=== PATIENT | male | born 1990 | race Caucasian/White ===

== ENCOUNTER 2024-09-24 18:38 | Emergency (ER) | payer OTHER, SELFPAY ==
--- NOTE | ~2024-09-24 | XR_ITS ---
EXAM: XR forearm LT 2V, XR wrist LT min 3V DATE: 09/24/2024 21:16 HISTORY: fall from ladder, pain . COMPARISON: None available. FINDINGS: Normal mineralization. No fracture or dislocation. No lytic or blastic lesion. Joint space s are maintained. No erosion or periosteal change. Soft tissues within normal limits. IMPRESSION: No acute osseous finding in the left wrist or forearm. Reviewed, dictated and finalized at location K. IMPRESSION: No acute osseous finding in the left wrist or forearm.
--- NOTE | ~2024-09-24 | CT_ITS ---
EXAMINATION: CT cervical spine wo con DATE: 09/24/2024 19:08 INDICATION: fall TECHNIQUE: Computed tomography (CT) of the cervical spine was performed without intravenous contrast. Automated exposure control and iterative reconstruction technique were employed. The dose-length pro duct was 311.76 mGy-cm. COMPARISON: None. FINDINGS: Vertebral Body Alignment: Intact. Craniocervical and atlantoaxial alignment: No significant degenerative change. Alignment intact. Osseous structures/fracture: No evidence of a lytic or blastic process in the visualized spine. No e vidence of acute fracture. Cervical soft tissues: The paraspinal soft tissues planes are maintained. Degenerative changes: No significant degenerative changes. IMPRESSION: No acute fracture or traumatic malalignment in the cervical spine. Reviewed, dictated and finalized at location K.
--- NOTE | ~2024-09-24 | XR_ITS ---
EXAM: XR femur LT min 2V, XR knee LT min 4V DATE: 09/24/2024 21:16 HISTORY: fall from ladder, pain . COMPARISON: None available. FINDINGS: Normal mineralization. No fracture or dislocation. No lytic or blastic lesion. Joint space s are maintained. No erosion or periosteal change. Soft tissues within normal limits. IMPRESSION: No acute osseous finding in the left femur or left knee. Reviewed, dictated and finalized at location K. IMPRESSION: No acute osseous finding in the left femur or left knee.
--- NOTE | ~2024-09-24 | CT_ITS ---
EXAMINATION: CT chest abdomen pelvis w con DATE: 09/24/2024 19:10 INDICATION: fall from height . TECHNIQUE: Computed tomography (CT) of the chest, abdomen, and pelvis was performed with 100 mL Omnip aque-350 intravenous contrast. Automated exposure control and iterative reconstruction technique were employed. The dose-length product was 484.26 mGy-cm. COMPARISON: None FINDINGS: CHEST: No thoracic aortic injury. No mediastinal hematoma. No pericardial effusion. No acute lung injury. No pleural effusion or pneumothorax. ABDOMEN/PELVIS: No solid organ injury. Mildly enlarged liver and spleen. No evidence of bowel or mesenteric injury. No free fluid or free air. No retroperitoneal hematoma. Pelvic contents are atraumatic. MUSCULOSKELETAL: No acute fracture. No fracture or traumatic malalignment of the thoracic or lumbar spine. Partial block fusion at T10-11 . No severe central canal or neural foraminal narrowing. IMPRESSION: No acute traumatic process detected in the chest, abdomen, or pelvis. Mild hepatosplenomegaly. Reviewed, dictated and finalized at location K.
--- NOTE | ~2024-09-24 | CT_ITS ---
EXAMINATION: CT brain wo con DATE: 09/24/2024 19:08 INDICATION: fall . TECHNIQUE: Computed tomography (CT) of the head was performed without intravenous contrast. The mA wa s adjusted according to patient size. Iterative reconstruction technique was employed. The dose-lengt h product was 605.33 mGy-cm. COMPARISON: 08/31/2006. FINDINGS: No acute intracranial hemorrhage or extra-axial fluid collection. No hydrocephalus, mass, or herniation. No acute ischemic infarct. Unremarkable dural venous sinus attenuation. No acute osseous abnormality. Right maxillary mucosal thickening and aerated secretions, the remaining aerated spaces are clear. IMPRESSION: No acute intracranial process. Right maxillary findings may represent acute sinusitis and/or mild mucosal hemorrhage given the histo ry of trauma. Reviewed, dictated and finalized at location K. IMPRESSION: No acute intracranial process. Right maxillary findings may represent acute sinusitis and/or mild mucosal hemo rrhage given the history of trauma.
[2024-09-24 18:41] VITALS: BP 134/83; PULSE 128; RESP 20; TEMP 36.9; O2SAT 99
--- OUTSIDE RECORDS SUMMARY | 2024-09-24 18:41 | XMS_ITS | Clinical Summary ---
Author Organization [facility] Address [address] [place] [address] Care Team Providers Care Associate Counsel Name Role Phone Unavailable Primary Care Provider Unavailabl e Source Comments [facility],non-owned Affiliates and Associated Physician Practices is amultiple site organization consisting of ambulatory clinics and hospital sitesin [place], [place] and [place]. This disclosure is being madepursuant to the Care Everywhere program and may not contain all information available regarding this patient. Last updated 17.[employer] Allergies No known active allergies Medications * Be aware that medications may not be up to date on this document. Alwaysverify current medications with the patient. ibuprofen (MOTRIN) 600 MG tablet Take 600 mg by mouth every 6 hours as needed. Active Active Problems Problem Noted Date Diagnosed Date Flu 11/10/2009 Family History Medical History Relation Name Comments CAD (Coronary Artery Disease) Maternal Grandfather Relation Name Status Comments Maternal Grandfather Social History Tobacco Use Types Packs/Day Years Used Date Smoking Tobacco: Passive Smo ke Exposure - Never Smoker Comments:not currently smoki ng. 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 Gender Identity Not on file Sexual Orientation Not on file Last Filed Vital Signs Vital Sign Reading Time Taken Comments Blood Pressure 120/68 11/10/2009 9:14 AM CDT Pulse 98 11/10/2009 9:14 AM CDT Temperature 39.2 C (102.5 F) 11/10/2009 9:14 AM CDT Respiratory Rate - - Oxygen Saturation 98% 11/10/2009 9:14 AM CDT Inhaled Oxygen Concentration - - Weight 74.6 kg (164 lb 6.4 oz) 11/10/2009 9:14 A M CDT Height 176.5 cm (5' 9.5) 11/10/2009 9:14 AM CDT Body Mass Index 23.93 11/10/2009 9:14 AM CDT Plan of Treatment Health Maintenance Due Date Last Done Comments HIV SCREENING 2004 HEPATITIS C SCREENING 08/13/2007 DTAP/TDAP/TD VACCINES (1 - Tdap) 2008 HEPATITIS B VACCINE (1 of 3 - 19+ 3-dose series) 2008 COVID-19 VACCINE (1 - 2023-2 5 season) 2023 DEPRESSION SCREENING 03/21/2024 INFLUENZA VACCINE (Season Ended) 2024 ZOSTER VACCINE (1 of 2) 08/18/2039 HIB VACCINE Aged Out No longer eligi ble based on patient's age to complete this topic HPV VACCINE Aged Out No longer eligi ble based on patient's age to complete this topic MENINGOCOCCAL (Group B) VACC INE SHARED DECISION-MAKING Aged Out No longer eligibl e based on patient's age to complete this topic MENINGOCOCCAL GROUPS A/C/Y/W VACCINE Aged Out No longer eligible b ased on patient's age to complete this topic PNEUMOCOCCAL VACCINE Aged Out No long er eligible based on patient's age to complete this topic
--- NOTE | 2024-09-24 18:46 | ED.FALL ---
HPI - Fall General Chief Complaint: Fall <Luci Rosado PA-C - Last Filed: 09/25/24 12:57> Stated Complaint: fell off 10ft ladder <ÁNGELA Rooney Last Filed: 09/25/24 12:57> Time Seen by Provider: 09/24/24 18:46 <Luci Rosado PA-C - Last Filed: 09/25/24 12:57> Focused HPI: This is a 34-year-old male that presents to the emergency department after a fall this afternoon. Reports he fell about 10 ft off of a ladder. Landed on his left side. He does not believe he hit his head. He did not lose consciousness. Reports pain throughout his left side. GENERAL: Well-appearing, well-nourished, and in no acute distress. HEAD: Normocephalic, atraumatic. CHEST: Clear to auscultation. ?No respiratory distress. HEART: Tachycardic, regular rhythm.? NEURO: ?Alert and oriented x3. Patient screened in triage and initial orders placed.? ?Additional care and disposition to be based upon?diagnostic testing and treatment. <Luci Rosado PA-C - Last Filed: 09/25/24 12:57> Focused HPI: This is a 34-year-old male that presents to the emergency department after a fall this afternoon. Reports he fell about 10 ft off of a ladder. Landed on his left side. He does not believe he hit his head. He did not lose consciousness. Reports pain throughout his left side. GENERAL: Well-appearing, well-nourished, and in no acute distress. HEAD: Normocephalic, atraumatic. CHEST: Clear to auscultation. ?No respiratory distress. HEART: Tachycardic, regular rhythm.? NEURO: ?Alert and oriented x3. Patient screened in triage and initial orders placed.? ?Additional care and disposition to be based upon?diagnostic testing and treatment. <ÁNGELA Hager Last Filed: 09/24/24 21:57> Source: patient <ÁNGELA Hager Last Filed: 09/24/24 21:57> Mode of arrival: ambulatory <ÁNGELA Hager Last Filed: 09/24/24 21:57> Limitations: no limitations <ÁNGELA Hager Last Filed: 09/24/24 21:57> History of Present Illness HPI Narrative: Agree with above HPI. Upon my evaluation, patient complains of the most pain to his left hip, left wrist, left knee. Denies dizziness, lightheadedness, vision changes, nausea, vomiting, shortness of breath. <ÁNGELA Hager Last Filed: 09/24/24 21:57> Related Data Allergies/Adverse Reactions: Allergies Allergy/AdvReac Type Severity Reaction Status Date / Time No Known Allergies Allergy Mild Verified 09/24/24 18:45 <ÁNGELA Rooney Last Filed: 09/25/24 12:57> Review of Systems Review of Systems: All systems reviewed & are unremarkable except as noted in HPI. <ÁNGELA Hager Last Filed: 09/24/24 21:57> All systems reviewed & are unremarkable except as noted in HPI and below <ÁNGELA Hager Last Filed: 09/24/24 21:57> Exam Narrative: GENERAL: Well appearing, well-nourished, non-toxic, in no acute distress. HEAD: Normocephalic, atraumatic. NECK: Supple, normal ROM, no tenderness throughout midline spine. No palpable bony deformities or step offs. RESPIRATORY: Airway patent, respirations nonlabored. Clear to auscultation bilaterally, no rales, rhonchi, wheezing. CARDIOVASCULAR: Regular rate and rhythm without murmurs, rubs, or gallops. ABDOMINAL: Soft, nontender, nondistended. Normoactive BS. MUSCULOSKELETAL: Moves all extremities. No gross deformities. Small abrasion over left anterior hip with focal tenderness to palpation. Mild tenderness throughout lateral joint space of left knee/distal left femur. Mild tenderness to palpation diffusely throughout left distal radius/ulnar region/distal forearm. No significant swelling. No tenderness throughout left elbow or left shoulder. No appreciable tenderness throughout lumbar midline spine. Mild tenderness to palpation diffusely throughout scapular regions, no significant tenderness throughout thoracic spine. No palpable bony deformities or step-offs. SKIN: Warm, dry, normal color. NEURO: A&O X3. Speech clear. Cranial nerves II-XII grossly intact. Steady gait. No ataxic movements. No focal deficits. PSYCHIATRIC: Appropriate mood and affect. Normal interaction. <ÁNGELA Hager Last Filed: 09/24/24 21:57> Course Vital Signs Vital signs: Vital Signs Temperature 98.4 F 09/24/24 18:41 Pulse Rate 128 H 09/24/24 18:41 Respiratory Rate 20 09/24/24 18:41 Blood Pressure 134/83 09/24/24 18:41 Pulse Oximetry 99 09/24/24 18:41 Oxygen Delivery Room Air 09/24/24 18:41 Temperature 98.4 F 09/24/24 18:41 Pulse Rate 83 09/24/24 22:11 Respiratory Rate 13 09/24/24 22:11 Blood Pressure 145/88 H 09/24/24 22:11 Pulse Oximetry 100 09/24/24 22:11 Oxygen Delivery Room Air 09/24/24 18:41 <ÁNGELA Rooney Last Filed: 09/25/24 12:57> Vital Signs Temperature 98.4 F 09/24/24 18:41 Pulse Rate 128 H 09/24/24 18:41 Respiratory Rate 20 09/24/24 18:41 Blood Pressure 134/83 09/24/24 18:41 Pulse Oximetry 99 09/24/24 18:41 Oxygen Delivery Room Air 09/24/24 18:41 Temperature 98.4 F 09/24/24 18:41 Pulse Rate 83 09/24/24 22:11 Respiratory Rate 13 09/24/24 22:11 Blood Pressure 145/88 H 09/24/24 22:11 Pulse Oximetry 100 09/24/24 22:11 Oxygen Delivery Room Air 09/24/24 18:41 <ÁNGELA Hager Last Filed: 09/24/24 21:57> MDM - Fall MDM Narrative Medical decision making narrative: Patient presented to ED status post fall approximately 10 ft off of a ladder onto his left side. Vital signs stable upon arrival. Patient neurologically intact. No gross deformities. Trauma workup was initiated. Laboratory studies with mild leukocytosis of 15.7. Likely reactive. Otherwise stable electrolytes, normal LFTs. CT brain and cervical spine without acute traumatic findings. Possibly showing mucosal sinus hemorrhage on R side. Patient w/o any tenderness in this region, no trauma to R side of face. CT chest/abdomen/pelvis unremarkable. No internal injuries. X-rays of left wrist and forearm negative. X-rays of left knee and femur negative. Patient updated on imaging findings. Advised will likely be sore over the next few days. Offered to prescribed muscle relaxers for home, however patient politely declined. Will rx lidocaine patches for home use. Otherwise safe for D/C this time. Patient given return precautions. Discharged in stable condition. <Vidhya Perrin PA-C - Last Filed: 09/24/24 21:57> Medical Records Attestation: I reviewed the patient's medical records. <Vidhya Perrin PA-C - Last Filed: 09/24/24 21:57> Lab Data Attestation: I reviewed the patient's lab results. <Vidhya Perrin PA-C - Last Filed: 09/24/24 21:57> Result diagrams: 09/24/24 18:53 09/24/24 18:53 <Luci Rosado PA-C - Last Filed: 09/25/24 12:57> Labs: Lab Results 09/24/24 Range/Units 18:53 WBC 15.7 H (4.5-10.0) K/mm3 RBC 5.71 (4.6-6.20) M/mm3 Hgb 16.2 (14.0-18.0) g/dL Hct 48.1 (42.0-52.0) % MCV 84.2 (80-100) fl MCH 28.4 (26-34) pg MCHC 33.7 (32-36) g/dl RDW 12.9 (11.5-14.5) % Plt Count 258 (150-375) k/mm3 MPV 8.8 (7.4-10.4) fl Immature Gran % (Auto) 0.3 (0-0.5) % Neut % (Auto) 86.3 H (45.5-73.1) % Lymph % (Auto) 8.1 L (18.3-44.2) % [place] % (Auto) 5.0 (2.6-8.5) % Eos % (Auto) 0.0 (0-4.4) % Baso % (Auto) 0.3 (0.2-1.2) % Lymph # (Auto) 1.27 (0.9-3.2) K/mm3 [place] # (Auto) 0.8 H (0.1-0.6) K/mm3 Eos # (Auto) 0.0 (0-0.3) K/mm3 Baso # (Auto) 0.1 (0.0-0.1) K/mm3 Abs Immat Gran (auto) 0.05 H (0.00-0.031) K/mm3 Absolute Neuts (auto) 13.6 H (1.3-6.7) K/mm3 Absolute Nucleated RBC 0.000 (0.0-0.012) K/mm3 Nucleated RBC % 0.0 (0.0-0.2) % PT 13.7 (11.1-14.7) Seconds INR 1.1 APTT 22.3 (22.3-36.8) Seconds Sodium 141 (137-145) mmol/L Potassium 3.7 (3.4-5.0) mmol/L Chloride 106 (98-107) mmol/L Carbon Dioxide 24 (22-30) mmol/L Anion Gap 11 (4-12) mmol/L BUN 15 (9-20) mg/dL Creatinine 1.03 (0.7-1.3) mg/dL Estim Creat Clear Calc 87 ml/min Estimated GFR > 60 (59 - ) Glucose 145 H (65-110) mg/dL Calcium 10.1 (8.4-10.2) mg/dL Total Bilirubin 1.3 (0.2-1.3) mg/dL AST 27 (17-59) U/L ALT 21 (6-50) U/L Alkaline Phosphatase 53 (38-126) U/L Total Protein 8.1 (6.3-8.2) g/dL Albumin 4.9 (3.5-5.1) g/dL <Luci Rosado PA-C - Last Filed: 09/25/24 12:57> Lab Results 09/24/24 Range/Units 18:53 WBC 15.7 H (4.5-10.0) K/mm3 RBC 5.71 (4.6-6.20) M/mm3 Hgb 16.2 (14.0-18.0) g/dL Hct 48.1 (42.0-52.0) % MCV 84.2 (80-100) fl MCH 28.4 (26-34) pg MCHC 33.7 (32-36) g/dl RDW 12.9 (11.5-14.5) % Plt Count 258 (150-375) k/mm3 MPV 8.8 (7.4-10.4) fl Immature Gran % (Auto) 0.3 (0-0.5) % Neut % (Auto) 86.3 H (45.5-73.1) % Lymph % (Auto) 8.1 L (18.3-44.2) % [place] % (Auto) 5.0 (2.6-8.5) % Eos % (Auto) 0.0 (0-4.4) % Baso % (Auto) 0.3 (0.2-1.2) % Lymph # (Auto) 1.27 (0.9-3.2) K/mm3 [place] # (Auto) 0.8 H (0.1-0.6) K/mm3 Eos # (Auto) 0.0 (0-0.3) K/mm3 Baso # (Auto) 0.1 (0.0-0.1) K/mm3 Abs Immat Gran (auto) 0.05 H (0.00-0.031) K/mm3 Absolute Neuts (auto) 13.6 H (1.3-6.7) K/mm3 Absolute Nucleated RBC 0.000 (0.0-0.012) K/mm3 Nucleated RBC % 0.0 (0.0-0.2) % PT 13.7 (11.1-14.7) Seconds INR 1.1 APTT 22.3 (22.3-36.8) Seconds Sodium 141 (137-145) mmol/L Potassium 3.7 (3.4-5.0) mmol/L Chloride 106 (98-107) mmol/L Carbon Dioxide 24 (22-30) mmol/L Anion Gap 11 (4-12) mmol/L BUN 15 (9-20) mg/dL Creatinine 1.03 (0.7-1.3) mg/dL Estim Creat Clear Calc 87 ml/min Estimated GFR > 60 (59 - ) Glucose 145 H (65-110) mg/dL Calcium 10.1 (8.4-10.2) mg/dL Total Bilirubin 1.3 (0.2-1.3) mg/dL AST 27 (17-59) U/L ALT 21 (6-50) U/L Alkaline Phosphatase 53 (38-126) U/L Total Protein 8.1 (6.3-8.2) g/dL Albumin 4.9 (3.5-5.1) g/dL <ÁNGELA Hager Last Filed: 09/24/24 21:57> Imaging Data Attestation: I personally reviewed and interpreted this imaging study as follows: <Vidhya Perrin PA-C - Last Filed: 09/24/24 21:57> Radiologist's impression: ITS Impressions Head CT 09/24/24 19:10 IMPRESSION: No acute intracranial process. Right maxillary findings may represent acute sinusitis and/or mild mucosal hemorrhage given the history of trauma. Cervical Spine CT 09/24/24 19:13 IMPRESSION: No acute fracture or traumatic malalignment in the cervical spine. Chest/Abdomen/Pelvis CT 09/24/24 19:15 IMPRESSION: No acute traumatic process detected in the chest, abdomen, or pelvis. Mild hepatosplenomegaly. Forearm X-Ray 09/24/24 21:28 IMPRESSION: No acute osseous finding in the left wrist or forearm. Wrist X-Ray 09/24/24 21:28 IMPRESSION: No acute osseous finding in the left wrist or forearm. Femur X-Ray 09/24/24 21:29 IMPRESSION: No acute osseous finding in the left femur or left knee. Knee X-Ray 09/24/24 21:29 IMPRESSION: No acute osseous finding in the left femur or left knee. <Vidhya Perrin PA-C - Last Filed: 09/24/24 21:57> Discharge Plan Discharge Clinical Impression: Fall from ladder Qualifiers: Encounter type: initial encounter Qualified Code(s): W11.XXXA - Fall on and from ladder, initial encounter Strain of left knee and leg Qualifiers: Encounter type: initial encounter Qualified Code(s): S86.912A - Strain of unspecified muscle(s) and tendon(s) at lower leg level, left leg, initial encounter Contusion of left hip Qualifiers: Encounter type: initial encounter Qualified Code(s): S70.02XA - Contusion of left hip, initial encounter Strain of left wrist Qualifiers: Encounter type: initial encounter Qualified Code(s): S66.912A - Strain of unspecified muscle, fascia and tendon at wrist and hand level, left hand, initial encounter <Luci Rosado PA-C - Last Filed: 09/25/24 12:57> Patient Disposition: Home <Luci Rosado PA-C - Last Filed: 09/25/24 12:57> Condition: Stable <ÁNGELA Rooney Last Filed: 09/25/24 12:57> Instructions: Antibiotic Form, Knee Sprain (ED), Hip Sprain (ED), Wrist Sprain (ED), Hip Contusion (ED) <Luci Rosado PA-C - Last Filed: 09/25/24 12:57> Additional Instructions: Continue Tylenol and Ibuprofen as needed for pain. You may use ice/heat, lidocaine patches to area of pain. Follow-up with your primary care doctor for further evaluation if needed. Return to the ED if you experience worsening or severe pain, recurrent injury, numbness in arms or legs, going to the bathroom without meaning to, difficulty breathing, chest pain, unable to keep down food or drink, or any other symptoms of concern. <Luci Rosado PA-C - Last Filed: 09/25/24 12:57> Patient Language: Kyrgyz <ÁNGELA Rooney Last Filed: 09/25/24 12:57> Prescriptions: New lidocaine 5 % adhesive patch,medicated 1 patch topical DAILY Qty: 15 0RF Rx Instructions: leave on most painful area for up to 12 hrs <Luci Rosaod PA-C - Last Filed: 09/25/24 12:57> Follow-up/Referrals: Jm Webster MD [Primary Care Provider] - <ÁNGELA Rooney Last Filed: 09/25/24 12:57> Time of Disposition: 21:49 <Luci Rosado PA-C - Last Filed: 09/25/24 12:57> 21:49 <Vidhya Perrin PA-C - Last Filed: 09/24/24 21:57>
[2024-09-24 18:58] LABS: Hematocrit 48.1 % (42.0-52.0); Hemoglobin 16.2 g/dL (14.0-18.0); Immature Granulocyte Percent A 0.3 % (0-0.5); Lymphocytes Absolute Auto 1.27 K/mm3 (0.9-3.2); Mean Corpuscular HGB Conc 33.7 g/dl (32-36); Mean Corpuscular Hemoglobin 28.4 pg (26-34); Mean Corpuscular Volume 84.2 fl (80-100); Nucleated Red Blood Cells Absolute Auto 0.000 K/mm3 (0.0-0.012); Nucleated Red Blood Cells Perc 0.0 % (0.0-0.2); Platelet Count Result 258 k/mm3 (150-375); Red Blood Count 5.71 M/mm3 (4.6-6.20); White Blood Count 15.7 K/mm3 (4.5-10.0)
[2024-09-24 19:11] LABS: Alanine Aminotransferase 21 U/L (6-50); Albumin Level 4.9 g/dL (3.5-5.1); Alkaline Phosphatase 53 U/L (38-126); Anion Gap 11 mmol/L (4-12); Aspartate Amino Transferase 27 U/L (17-59); Bilirubin,Total 1.3 mg/dL (0.2-1.3); Blood Urea Nitrogen 15 mg/dL (9-20); Calcium 10.1 mg/dL (8.4-10.2); Carbon Dioxide 24 mmol/L (22-30); Chloride 106 mmol/L (98-107); Estimated CRCL calculation 87 ml/min; Estimated Glomerular Filt Rate > 60; Glucose 145 mg/dL (65-110); Potassium 3.7 mmol/L (3.4-5.0); Sodium 141 mmol/L (137-145); Total Protein 8.1 g/dL (6.3-8.2)
--- OUTSIDE RECORDS SUMMARY | 2024-09-24 19:23 | XMS_ITS | Clinical Summary ---
Author Organization [facility] Address [address] [place] [address] Care Team Providers Care Purchasing Administrative Assistant Name Role Phone Unavailable Primary Care Provider Unavailabl e Source Comments [facility],non-owned Affiliates and Associated Physician Practices is amultiple site organization consisting of ambulatory clinics and hospital sitesin [place], [place], [place] and [place]. This disclosure is being madepursuant to the Care Everywhere program and may not contain all information available regarding this patient. 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
[2024-09-24 19:26] LABS: INR 1.1; Partial Thromboplastin Time 22.3 Seconds (22.3-36.8); Prothrombin Time 13.7 Seconds (11.1-14.7)
[2024-09-24] MEDS: HYDROcodone/acetaminophen (*CRX) 5-325 MG TABLET 1 TAB PO (21:36)
[2024-09-24] MEDS: KETOROLAC 30 MG/ML VIAL (*BKC) IV PUSH (21:37)
[2024-09-24 21:41] VITALS: BP 145/88; PULSE 83; RESP 13; O2SAT 100
[2024-09-24 22:11] VITALS: BP 145/88; PULSE 83; RESP 13; O2SAT 100
== END 2024-09-24 22:14 | disposition home or self-care (01) ==
PROVIDERS: Physician Assistant; Emergency Provider Physician Assistant; PCP Family Medicine
DX: S86.912A Strain of unspecified muscle(s) and tendon(s) at lower leg level, left leg, initial encounter (principal); S70.02XA Contusion of left hip, initial encounter; S66.912A Strain of unspecified muscle, fascia and tendon at wrist and hand level, left hand, initial encounter; R16.2 Hepatomegaly with splenomegaly, not elsewhere classified; W11.XXXA Fall on and from ladder, initial encounter
CPT/HCPCS: 36415; 70450; 71260; 72125; 73090; 73110; 73552; 73564; 74177; 80053; 85025; 85610; 85730; 96374; 99284; A9270; J1885; Q9967